=== PATIENT | female | born 1980 | race Caucasian/White ===

== ENCOUNTER 2021-09-18 19:31 | Inpatient (IN) ==
[2021-09-18 20:31] LABS: Basophils % 0.3 %; Eosinophils # 0.6 K/mcL (0.0-0.6); Eosinophils % 6.6 %; Hematocrit 39.3 % (35.3-44.9); Hemoglobin 13.2 g/dL (11.5-15.4); Immature Granulocytes % 0.2 % (0-4); Lymphocytes # 2.5 K/mcL (0.6-4.6); Lymphocytes % 25.8 %; Mean Corpuscular HGB Conc 33.6 g/dL (31.6-35.5); Mean Corpuscular Hemoglobin 30.4 pg (28.0-33.3); Mean Corpuscular Volume 90.6 fL (83.0-100.0); Mean Platelet Volume 9.6 fL (9.4-12.4); Monocytes # 0.7 K/mcL (0.0-1.3); Monocytes % 7.7 %; Neutrophils # 5.7 K/mcL (1.6-8.9); Platelet Count 271 K/mcL (140-400); Red Blood Count 4.34 M/mcL (3.82-4.97); Red Cell Distribution Width 12.5 % (11.5-14.5); Segmented Neutrophils % 59.4 %; White Blood Count 9.6 K/mcL (4.3-11.1)
[2021-09-18 20:47] LABS: Acetaminophen < 10 mcg/mL (10-20); BUN/Creatinine Ratio 14 (6-26); Blood Urea Nitrogen 11 mg/dL (6-20); Calcium 9.6 mg/dL (8.6-10.3); Carbon Dioxide 27 mEq/L (23-29); Chloride 107 mEq/L (98-107); Ethanol < 10 mg/dL (Less than 10); Glucose 87 mg/dL (70-105); Osmolality,Calculated 289 (280-300); Potassium 3.3 mEq/L (3.5-5.1); Salicylate < 2.5 mg/dL (15.0-30.0); Sodium 140 mEq/L (136-145); eGFR For African Americans > 60 (> 60); eGFR For Non-African Americans > 60 (> 60)
[2021-09-18 21:02] LABS: Bilirubin,Urine Negative (Negative); Blood,Urine Small (Negative); Clarity,Urine Clear (Clear); Color,Urine Light-Yellow (Yellow); Glucose,Urine (UA) Normal (Normal); Ketones,Urine Negative (Negative); Leukocyte Esterase,Urine Small (Negative); Mucus,Urine Few per lpf (None-Few); Nitrite,Urine Negative (Negative); PH,Urine 6.5 pH Units (5.0-8.0); Protein,Urine Trace mg/dL (Neg-Trace); Specific Gravity,Urine 1.023 (1.010-1.025); Squamous Epithelial Cell,Urine Few per hpf (None-Few); Urobilinogen,Urine Normal (Normal)
[2021-09-18 21:20] LABS: Amphetamine Screen,Urine Negative ng/mL (Cutoff=1000); Barbiturate Screen,Urine Negative ng/mL (Cutoff=200); Benzodiazepines Screen,Urine Negative ng/mL (Cutoff=200); Cannabinoid Screen,Urine Positive ng/mL (Cutoff = 50); Cocaine Screen,Urine Negative ng/mL (Cutoff= 300); Opiate Screen,Urine Negative ng/mL (Cutoff=300); Phencyclidine Screen,Urine Negative ng/mL (Cutoff=25)
[2021-09-18 23:56] LABS: Influenza A PCR Negative (Negative); Influenza B PCR Negative (Negative); Resp. Syncytial Virus PCR Negative (Negative); SARS-CoV-2 by PCR (In House) Negative (Negative)
[2021-09-19] MEDS ORDERED: *HR* LORazepam 1 MG TABLET PO PRN (00:49)
[2021-09-19] MEDS ORDERED: *HR* LORazepam 2 MG/ML VIAL IM PRN (00:49)
[2021-09-19] MEDS ORDERED: haloperidoL 5 MG TABLET PO PRN (00:49)
[2021-09-19] MEDS ORDERED: Haloperidol Lactate 5 MG/ML VIAL IM PRN (00:49)
[2021-09-19] MEDS ORDERED: Acetaminophen 325 MG TABLET PO PRN (00:49)
[2021-09-19] MEDS: traZODone 50 MG TABLET PO PRN ×3 (02:32→22:51)
[2021-09-19] MEDS: hydrOXYzine pamoate 25 MG CAPSULE PO PRN ×3 (02:32→20:55)
[2021-09-19] MEDS: Nicotine 21 MG PATCH.TD24 TD SCH (09:23)
[2021-09-19] MEDS ORDERED: Mag Hydrox/Al Hydrox/Simeth 30 ML UDC PO PRN (10:06)
[2021-09-19] MEDS ORDERED: MOM Conc 10 ML UD.LIQ PO PRN (10:06)
[2021-09-20] MEDS: Nicotine 21 MG PATCH.TD24 TD SCH (08:24)
[2021-09-20] MEDS: traZODone 50 MG TABLET PO PRN (20:49)
[2021-09-20] MEDS: hydrOXYzine pamoate 25 MG CAPSULE PO PRN (20:49)
[2021-09-21] MEDS: Nicotine 21 MG PATCH.TD24 TD SCH (08:09)
[2021-09-21 08:19] VITALS: BP 91/50; PULSE 67; TEMP 98.6; O2SAT 99
== END 2021-09-21 12:00 | disposition home or self-care (01) | DRG 751 ==
LOC: EMEROOARM 19:31 → 1ANU 09-19 00:36
PROVIDERS: ADMIT Psychiatry & Neurology Psychiatry; ATTEND Psychiatry & Neurology Psychiatry